=== PATIENT | female | born 1985 ===

== ENCOUNTER 2022-01-17 08:17 | Outpatient (CLI) | payer OTHER | END 2022-01-17 09:53 | disposition home or self-care (01) | LOC: PRENATAL 08:17 | PROVIDERS: ATTEND Obstetrics & Gynecology Maternal & Fetal Medicine | DX: O36.80X0 Pregnancy with inconclusive fetal viability, not applicable or unspecified (principal); O09.519 Supervision of elderly primigravida, unspecified trimester; Z3A.12 12 weeks gestation of pregnancy ==

== ENCOUNTER 2022-03-15 07:34 | Outpatient (CLI) | payer OTHER | END 2022-03-15 09:15 | disposition home or self-care (01) | LOC: PRENATAL 07:34 | PROVIDERS: ATTEND Obstetrics & Gynecology Maternal & Fetal Medicine | DX: O35.0XX0 Maternal care for (suspected) central nervous system malformation in fetus, not applicable or unspecified (principal); O35.3XX0 Maternal care for (suspected) damage to fetus from viral disease in mother, not applicable or unspecified; Z14.8 Genetic carrier of other disease ==

== ENCOUNTER 2022-06-07 09:07 | Outpatient (CLI) | payer OTHER | END 2022-06-07 10:00 | disposition home or self-care (01) | LOC: PRENATAL 09:07 | PROVIDERS: ATTEND Obstetrics & Gynecology Maternal & Fetal Medicine | DX: O26.849 Uterine size-date discrepancy, unspecified trimester (principal); O36.8199 Decreased fetal movements, unspecified trimester, other fetus; Z3A.32 32 weeks gestation of pregnancy ==

== ENCOUNTER 2022-07-17 13:45 | Inpatient (IN) | payer OTHER ==
[~2022-07-17] VITALS: Ht 149.9 cm; Wt 81.6 kg
[2022-07-30] MEDS ORDERED: PRENATAL TABLE1 EAC1 PO (11:05)
[2022-07-30] MEDS ORDERED: ECOTRIN81 MG PO (11:06)
== END 2022-08-03 12:55 | disposition home or self-care (01) | DRG 788 ==
LOC: OB/GYN 07-28 13:45 → LDR 07-30 08:40 → OB/GYN 07-31 16:01
PROVIDERS: ADMIT Obstetrics & Gynecology; ATTEND Obstetrics & Gynecology
PROC: 3E0P7VZ Introduction of Hormone into Female Reproductive, Via Natural or Artificial Opening (ICD-10-PCS; 2022-07-30)
PROC: 4A1HXCZ Monitoring of Products of Conception, Cardiac Rate, External Approach (ICD-10-PCS; 2022-07-30)
PROC: 3E033VJ Introduction of Other Hormone into Peripheral Vein, Percutaneous Approach (ICD-10-PCS; 2022-07-31)
PROC: 10D00Z1 Extraction of Products of Conception, Low, Open Approach (ICD-10-PCS; principal; 2022-07-31 14:00)
DX: O61.0 Failed medical induction of labor (principal); Z3A.40 40 weeks gestation of pregnancy; Z37.0 Single live birth; Z20.822 Contact with and (suspected) exposure to COVID-19